=== PATIENT | female | born 1960 | race Caucasian/White ===

== ENCOUNTER 2020-10-27 07:25 | Emergency (ER) | payer OTHER, SELFPAY ==
[2020-10-27 07:25] VITALS: BP 184/87; PULSE 104; RESP 16; TEMP 36.4; O2SAT 99
--- NOTE | 2020-10-27 07:50 | ED_ITS ---
HPI - General Adult General Chief complaint: Hypertension Stated complaint: High BP x5 days Time Seen by Provider: 10/27/20 07:32 Source: patient Mode of arrival: Ambulatory Limitations: no limitations History of Present Illness HPI narrative: Patient is a 60-year-old healthy female who presents today with concern with blood pressure problem. She walks daily she has no chest pain shortness of breath or headache. They recently got a blood pressure cuff to check her 's blood pressure in she started checking her is as well. She checked at morning and night and noticed that his slightly elevated. Systolic has been sometimes at 150. She has an appointment with a new primary care provider but not for 1 month. She was concerned and decided to come to the emergency department. She currently has no complaints. And is completely asymptomatic. Related Data Home Medications Medication Instructions Recorded Confirmed No Known Home Medications 10/23/20 10/23/20 Allergies Allergy/AdvReac Type Severity Reaction Status Date / Time No Known Drug Allergies Allergy Verified 10/23/20 08:13 Review of Systems Review of Systems Narrative: GENERAL: Denies chills, fatigue, malaise, fever, sweats, travel HEENT: Denies sinus pain, ear pain, sore throat, difficulty swallowing, neck pain RESPIRATORY: Denies dyspnea, cough, wheezing, hemoptysis, sputum. CARDIOVASCULAR: Denies chest pain, palpitations, orthopnea, edema GASTROINTESTINAL: Denies nausea, vomiting, abdominal pain, diarrhea, constipation, melena. : Denies dysuria, frequency, incontinence, hematuria, urinary retention, flank pain. MUSCULOSKELETAL: Denies weakness, joint pain, or bony pain SKIN: No rash, no erythema, no pruritus NEUROLOGIC: Denies weakness, dizziness, headache, numbness, change in speech, confusion PSYCHIATRIC: No concerning psychosocial issues. 12 point review of systems is negative except for those stated above and HPI Patient History Medical History Patient denies medical problems Social History Smoking Status: Never smoker Exam Initial Vital Signs Initial Vital Signs: Vital Signs Temperature 97.6 F 10/27/20 07:25 Pulse Rate 104 H 10/27/20 07:25 Respiratory Rate 16 10/27/20 07:25 Blood Pressure 184/87 H 10/27/20 07:25 Pulse Oximetry 99 10/27/20 07:25 GENERAL: Well-appearing, well-nourished and in no acute distress. HEENT: Head atraumatic,EOMI, pupils reactive, face symmetric, moist mucous membranes CARDIOVASCULAR: Regular rate and rhythm without murmurs, rubs or gallops. RESPIRATORY: Breath sounds equal bilaterally, no wheezes rales or rhonchi. ABDOMEN: Soft, nontender. Normoactive bowel sounds all 4 quadrants. No guarding or rebound. EXTREMITIES: Normal range of motion, no clubbing or edema. Neurovascularly intact NEUROLOGICAL: Alert and oriented x4.Normal gait and speech. Cranial nerves II through XII grossly intact. SKIN: Warm, dry, no laceration, no petechiae, no rashes or lesions. Course Orders Ordered: ED Orders 10/27/20 07:40 Complete Blood Count AUTO DIFF Stat Comprehensive Metabolic Panel Stat Lipase Stat Troponin & CK Cardiac Panel Stat Vital Signs Vital signs: Vital Signs - 8 hr 10/27/20 07:25 10/27/20 08:20 10/27/20 08:41 Temperature 97.6 F Pulse Rate 104 H 80 76 Respiratory Rate 16 14 14 Blood Pressure 184/87 H 133/74 145/68 H Pulse Oximetry 99 99 Medical Decision Making Lab Data Lab results reviewed: Yes I reviewed the patient's lab results. Result diagrams: 10/27/20 07:40 10/27/20 07:40 Labs: Lab Results 10/27/20 10/27/20 Range/Units 07:40 07:40 WBC 6.8 (4.5-11.0) X10^3/uL RBC 4.55 (4.0-5.2) X10^6/uL Hgb 13.8 (12.0-16.0) g/dL Hct 41.6 (36-46) % MCV 91.4 (80-100) fL MCH 30.2 (26-34) PG MCHC 33.1 (30-36) % RDW 13.0 (11.6-14.8) % Plt Count 217 (150-400) X10^3/uL Neut % (Auto) 66.5 (50-75) % Lymph % (Auto) 24.1 L (25-40) % [place] % (Auto) 7.0 (3-14) % Eos % (Auto) 2.0 (2-4) % Baso % (Auto) 0.4 (0-2) % Neut # (Auto) 4500 (8221-8932) /uL Lymph # (Auto) 1600 (3657-1506) /uL [place] # (Auto) 500 (0-900) /uL Eos # (Auto) 100 (0-450) /uL Baso # (Auto) 0 (0-100) /uL Sodium 138 (137-145) mmol/L Potassium 3.4 (3.4-5.1) mmol/L Chloride 101 (98-107) mmol/L Carbon Dioxide 30 (22-32) mmol/L BUN 15 (7-17) mg/dL Creatinine 0.55 (0.52-1.04) mg/dL Estimated GFR > 60.0 (>60) mL/min BUN/Creatinine Ratio 27.3 H (6-22) Glucose 141 H (80-110) mg/dL Calcium 10.0 (8.4-10.2) mg/dL Total Bilirubin 0.5 (0.2-1.3) mg/dL AST 21 (14-36) IU/L ALT 17 (<35) IU/L Alkaline Phosphatase 80 (38-126) U/L Total Creatine Kinase 27 L (30-135) U/L CK-MB (CK-2) TNP CK-MB (CK-2) Rel Index TNP Troponin I < 0.012 (0.01-0.034) ng/mL Total Protein 8.0 (6.3-8.2) g/dL Albumin 4.8 (3.5-5.0) g/dL Globulin 3.2 (1.7-4.1) g/dL Albumin/Globulin Ratio 1.5 (1.0-2.8) Lipase 121 (23-300) U/L ECG Data Attestation: I personally reviewed and interpreted this ECG as follows: Prior ECG tracings: not available for review Interpretation: Normal sinus rhythm rate 99 p.r. interval 136 QRS 62 QTC 431 T- wave inversion noted in the [address] changes no priors to compare MDM Narrative Medical decision making narrative: Patient's blood pressure has come down without any intervention blood work is overall reassuring no sign of end-organ damage. She has appointment with a new PCP in 1 month which I think is appropriate. I discussed with her about monitoring blood pressure at home. Discharge Plan Departure Patient Disposition: Home Clinical Impression: Worried well Instructions: DI for High Blood Pressure Activity Restrictions/Additional Instructions: *You have been diagnosed with at this time blood pressure is not concerning *What to do: At this time I recommend checking her blood pressure once daily. Her blood pressure in the emergency department today is not concerning your blood work is overall reassuring. *Continue to take medications as directed *Follow up with your primary care provider in 2-3 days *Return to ER if you should have shortness of breath, chest pain, headache, nausea, weakness or any new, worsening or concerning symptoms Prescriptions: No Action No Known Home Medications RF: 0 Referrals: Miscellaneous,Doctor, MD [Primary Care Provider] -
[2020-10-27 07:56] LABS: Add Manual Diff / Slide Review NO; Basophils Absolute Auto 0 /uL (0-100); Basophils Percent Auto 0.4 % (0-2); Eosinophils Absolute Auto 100 /uL (0-450); Hematocrit 41.6 % (36-46); Hemoglobin 13.8 g/dL (12.0-16.0); Lymphocytes Absolute Auto 1600 /uL (1100-4500); Lymphocytes Percent Auto 24.1 % (25-40); Mean Corpuscular HGB Conc 33.1 % (30-36); Mean Corpuscular Hemoglobin 30.2 PG (26-34); Mean Corpuscular Volume 91.4 fL (80-100); Monocytes Absolute Auto 500 /uL (0-900); Neutrophils Absolute Auto 4500 /uL (1500-7000); Neutrophils Percent Auto 66.5 % (50-75); Platelet Count 217 X10^3/uL (150-400); Red Blood Cell Count 4.55 X10^6/uL (4.0-5.2); White Blood Cell Count 6.8 X10^3/uL (4.5-11.0)
[2020-10-27 08:08] LABS: Alanine Aminotransferase 17 IU/L (<35); Albumin 4.8 g/dL (3.5-5.0); Albumin Globulin Ratio 1.5 (1.0-2.8); Alkaline Phosphatase 80 U/L (38-126); Aspartate Aminotransferase 21 IU/L (14-36); BUN Creatinine Ratio 27.3 (6-22); Bilirubin Total 0.5 mg/dL (0.2-1.3); Blood Urea Nitrogen 15 mg/dL (7-17); Carbon Dioxide 30 mmol/L (22-32); Chloride 101 mmol/L (98-107); Creatine Kinase 27 U/L (30-135); Estimated Glomerular Filt Rate > 60.0 mL/min (>60); Globulin 3.2 g/dL (1.7-4.1); Glucose 141 mg/dL (80-110); HEMOLYSIS < 15 (0-50); Lipase 121 U/L (23-300); Potassium 3.4 mmol/L (3.4-5.1); Sodium 138 mmol/L (137-145)
[2020-10-27 08:19] LABS: Troponin I < 0.012 ng/mL (0.01-0.034)
[2020-10-27 08:20] VITALS: BP 133/74; PULSE 80; RESP 14
--- NOTE | 2020-10-27 08:40 | PC.NURSE ---
pt denies headache, dizziness, cp or shortness of breath.
[2020-10-27 08:41] VITALS: BP 145/68; PULSE 76; RESP 14; O2SAT 99
== END 2020-10-27 08:55 | disposition home or self-care (01) ==
PROVIDERS: Emergency Provider Emergency Medicine
DX: I10 Essential (primary) hypertension (principal); R07.9 Chest pain, unspecified
CPT/HCPCS: 36415; 80053; 82550; 83690; 84484; 85025; 93005; 99283; 99284

== ENCOUNTER → 2020-11-30 09:28 | Outpatient (CLI) | payer OTHER, SELFPAY | PROVIDERS: PCP Nurse Practitioner Family; Referring Provider Nurse Practitioner Family; Visit Provider Nurse Practitioner Family | DX: M85.88 Other specified disorders of bone density and structure, other site (principal); Z78.0 Asymptomatic menopausal state | CPT/HCPCS: 77080 ==